=== PATIENT | male | born 1990 | race Caucasian/White ===

== ENCOUNTER → 2020-12-26 06:58 | Outpatient (CLI) | payer BC, SELFPAY ==
--- NOTE | ~2020-12-26 | XR_ITS ---
XR shoulder LT min 2V 12/26/2020 07:20 Indication: Left shoulder pain Procedure: 4 views left shoulder Comparison: No prior studies for comparison. Findings: No fracture, subluxation or dislocation. Normal anatomic alignment. No significant soft tis anjel abnormality. No foreign bodies. Normal mineralization. Impression: 1: No significant bone or joint abnormality. Reviewed, dictated and finalized at location B. Impression: 1: No significant bone or joint abnormality.
== END ==
PROVIDERS: PCP Nurse Practitioner Family; Visit Provider Nurse Practitioner Family
DX: M25.512 Pain in left shoulder (principal)
CPT/HCPCS: 73030

== ENCOUNTER → 2021-01-04 12:12 | Outpatient (CLI) | payer BC, SELFPAY ==
--- NOTE | ~2021-01-04 | MR_ITS ---
EXAMINATION: MR shoulder LT wo con DATE: 01/04/2021 13:01 INDICATION: Left shoulder pain TECHNIQUE: Magnetic resonance imaging (MRI) of the left shoulder was performed without intravenous co ntrast. Sequences included axial PD-weighted FS FSE, coronal oblique PD-weighted FS FSE, coronal obli que T2-weighted FS FSE, sagittal PD-weighted FS FSE, and sagittal T1-weighted SE. COMPARISON: None. FINDINGS: Coracoacromial arch: The acromion undersurface is minimally curved in morphology (type I-II). The coracoacromial ligament is normal. Acromioclavicular joint is normal. Rotator cuff: Mild supraspinatus tendinopathy without discrete tear. The infraspinatus, teres minor and subscapular is tendons are normal. Normal rotator cuff muscle bulk and signal. Biceps tendon, glenoid labrum and glenohumeral cartilage: Long head of the biceps tendon is normal. There is an 11 x 11 x 5 mm para labral cyst which arises fr om a tear at the 7:00 position of the posterior inferior glenoid labrum. The tear extends cephalad to at least the 9:30 position. Glenohumeral cartilage is normal. Fluid: Physiologic amount of fluid in the glenohumeral joint and biceps tendon sheath. No loose osteochondra l bodies. No abnormal fluid in the subacromial/subdeltoid bursa to suggest bursitis. Bones: Bone island at the surgical neck of the left humerus. Mild cystic and hypertrophic change at the supe rior facet of the greater tuberosity. Otherwise normal marrow signal with no fracture or pathologic m arrow replacing process. IMPRESSION: 1. Small para labral cyst arising from a subtle tear of the posterior inferior glenoid labrum likely extending into the posterior labrum. 2. Mild supraspinatus tendinopathy without discrete tear. Reviewed, dictated and finalized at location B.
== END ==
PROVIDERS: PCP Nurse Practitioner Family; Visit Provider Nurse Practitioner Family
DX: M25.512 Pain in left shoulder (principal)
CPT/HCPCS: 73221